=== PATIENT | female | born 1945 | race Caucasian/White ===

== ENCOUNTER → 2017-02-24 | Outpatient (CLI) | payer MEDICARE, OTHER ==
[~2017-02-24] MED LIST: AMOX TR-K CLV1 EAC4 PO; CELEXA40 MG PO; NORCO 5-325 MG1 TAB PO; ZOCOR40 MG PO
== END | disposition disaster alternative care site (69) ==
LOC: GBCOE 13:00
DX: Z12.31 Encounter for screening mammogram for malignant neoplasm of breast (principal); I77.9 Disorder of arteries and arterioles, unspecified; I65.23 Occlusion and stenosis of bilateral carotid arteries; Z86.010 Personal history of colon polyps
CPT/HCPCS: G0202

== ENCOUNTER → 2017-03-09 | Outpatient (CLI) | payer MEDICARE, OTHER | END | disposition disaster alternative care site (69) | LOC: LGSMG 17:12 | DX: R50.9 Fever, unspecified (principal) ==

== ENCOUNTER → 2017-03-13 | Outpatient (CLI) | payer MEDICARE, OTHER | END | disposition disaster alternative care site (69) | LOC: GRAD 08:50 | DX: R50.9 Fever, unspecified (principal); R51 Headache; J32.0 Chronic maxillary sinusitis ==

== ENCOUNTER → 2017-03-24 | Outpatient (CLI) | payer MEDICARE, OTHER | END | disposition disaster alternative care site (69) | LOC: LGSMG 17:15 | DX: R50.9 Fever, unspecified (principal) ==

== ENCOUNTER → 2017-04-20 | Outpatient (CLI) | payer MEDICARE, OTHER ==
[2017-04-20 17:28] LABS: BASOPHIL # 0.1 K/uL (0.0-0.2); BASOPHIL % 1.1 %; EOSINOPHIL # 0.4 K/uL (0.0-0.5); EOSINOPHIL % 7.1 %; HEMATOCRIT 38.5 % (33.0-46.0); HEMOGLOBIN 12.4 g/dL (10.0-15.0); IMMATURE GRANULOCYTE % 0.2 %; LYMPHOCYTE # 1.7 K/uL (0.8-4.0); MCH 30.2 pg (27.0-34.0); MCHC 32.2 gm/dL (32.0-36.5); MCV 93.7 fl (83.0-98.0); MONOCYTE # 0.4 K/uL (0.0-1.0); MPV 14.7 fl (9.4-12.4); NEUTROPHIL # (ANC) 2.9 K/uL (1.8-7.8); NEUTROPHIL % 53.6 %; NRBC % 0 /100WBC (0-0.00); PLATELET COUNT 187 K/uL (150-450); RBC 4.11 M/uL (3.50-5.50); RDW-CV 13.2 % (11.9-14.6); WBC 5.3 K/uL (4.0-11.0)
[2017-04-20 17:40] LABS: ALK PHOS 72 IU/L (33-138); ALT 140 IU/L (12-78); ANION GAP 10.7 (10.0-19.0); AST 71 IU/L (10-40); BLOOD UREA NITROGEN 20 mg/dL (6-24); CALCIUM 9.1 mg/dL (8.5-10.5); CHLORIDE 106 mMol/L (96-110); CO2 26 mMol/L (22-32); CREATININE 0.8 mg/dL (0.5-1.1); ESTIMATED GFR (MDRD EQUATION) > 60; POTASSIUM 3.7 mMol/L (3.7-5.1); SODIUM 139 mMol/L (135-145); TOTAL BILIRUBIN 0.3 mg/dL (0.0-1.5)
[2017-04-20 17:46] LABS: BILIRUBIN URINE NEGATIVE (NEGATIVE); BLOOD URINE 10 /UL (NEGATIVE); COLOR URINE YELLOW (YELLOW); GLUCOSE URINE NEGATIVE (NEGATIVE); KETONE URINE NEGATIVE (NEGATIVE); LEUKOCYTES URINE NEGATIVE /UL (NEGATIVE); NITRITE URINE NEGATIVE (NEGATIVE); PROTEIN URINE 15 mg/dL (NEGATIVE); TURBIDITY URINE 1+ (CLEAR); UROBILINOGEN URINE NORMAL (NORMAL)
[2017-04-20 17:57] LABS: BACTERIA URINE FEW (NEGATIVE); RBC URINE NEGATIVE #/HPF (NEGATIVE); WBC URINE 0-2 #/HPF (NEGATIVE)
== END ==
LOC: LGSMG 17:20
PROVIDERS: Internal Medicine
DX: R11.0 Nausea (principal); R50.9 Fever, unspecified; A04.7 Enterocolitis due to Clostridium difficile

== ENCOUNTER → 2017-05-08 | Outpatient (CLI) | payer MEDICARE, OTHER | END | disposition disaster alternative care site (69) | LOC: GRAD 15:30 | DX: K04.7 Periapical abscess without sinus (principal); J32.9 Chronic sinusitis, unspecified; R51 Headache; R50.9 Fever, unspecified ==

== ENCOUNTER → 2017-05-08 | Outpatient (CLI) | payer MEDICARE, OTHER | END | disposition disaster alternative care site (69) | LOC: LGSMG 16:14 | DX: R80.9 Proteinuria, unspecified (principal) ==

== ENCOUNTER → 2017-05-11 | Outpatient (CLI) | payer MEDICARE, OTHER | END | disposition disaster alternative care site (69) | LOC: GRAD 10:15 | DX: K04.7 Periapical abscess without sinus (principal); J32.9 Chronic sinusitis, unspecified; K76.89 Other specified diseases of liver; R51 Headache; R50.9 Fever, unspecified ==

== ENCOUNTER → 2017-05-15 | Outpatient (CLI) | payer MEDICARE, OTHER | END | disposition disaster alternative care site (69) | LOC: GRAD 08:02 | DX: R47.01 Aphasia (principal); R47.1 Dysarthria and anarthria ==

== ENCOUNTER → 2017-06-02 | Outpatient (CLI) | payer MEDICARE, OTHER ==
[2017-06-02 16:43] LABS: INR - (THERAPEUTIC) 0.97 (0.92-1.07); PROTIME 10.2 SECONDS (9.8-11.4)
== END ==
LOC: LGSMG 16:26
PROVIDERS: Internal Medicine
DX: Z01.818 Encounter for other preprocedural examination (principal)

== ENCOUNTER → 2017-06-14 | Day surgery (SDC) | payer MEDICARE, OTHER ==
--- NOTE | ~2017-06-14 | ER ---
PATIENT'S NAME: PEDRO LI [facility] AGE: 72 Y [address] ROOM: [place] [address] [place] [facility] [place]: 06/14/2017 ER/Outpatient Report DISCHARGE DATE: FAMILY PHYSICIAN: Josefa Romero MD ATTENDING PHYSICIAN: Ubaldo Dominguez V Time of Arrival: 1606 hours. Time of Evaluation: 1615 hours. CHIEF COMPLAINT: Nosebleed. HISTORY OF PRESENT ILLNESS: The patient is a 72-year-old female who presents to emergency department today with chief complaint of nosebleed. She reports this started 30 minutes prior to arrival. The patient reports she underwent sinus surgery by Dr. Dominguez on the 04 of June approximately 10 days prior. The patient was seen and evaluated at [facility] for nosebleed yesterday as she was able to get the bleeding controlled. However, the patient started bleeding about 30 minutes prior to coming in here. She denies any pain, 0/10 in severity. No fevers, chills, nausea, vomiting, diarrhea, or constipation. PAST MEDICAL HISTORY: Anxiety, dyslipidemia. PAST SURGICAL HISTORY: Sinus surgery, neck surgery. SOCIAL HISTORY: The patient denies any tobacco use. She reports occasional alcohol use. Denies any illicit drug use. ALLERGIES: NO KNOWN DRUG ALLERGIES. MEDICATIONS: None. PRIMARY CARE DOCTOR: Josefa Romero MD REVIEW OF SYSTEMS: All systems are reviewed by myself and negative with the exception of those discussed in HPI and past medical history. PATIENT'S NAME: GUILLERMOPEDRO [facility] AGE: 72 Y [address] ROOM: [place] [address] LOCATION: [facility] [place] DATE: 06/14/2017 ER/Outpatient Report DISCHARGE DATE: FAMILY PHYSICIAN: Josefa Romero MD ATTENDING PHYSICIAN: Ubaldo Dominguez V PHYSICAL EXAMINATION: VITAL SIGNS: Weight 63.7 kg, blood pressure 174/92, pulse 104, respiratory rate 18, temperature 99.4, oxygen saturation 98% on room air. GENERAL: The patient is a 72-year-old female, appears stated age with active nosebleed. HEENT: Normocephalic, atraumatic. Pupils are equal, round, and reactive to light. The patient's right naris with bleeding and clot noted. Left naris appears normal. Oropharynx: The patient does have posterior pharynx bleeding. NECK: Supple. There is no nuchal rigidity. CARDIOVASCULAR: Tachycardic. No murmurs, rubs, or gallops. LUNGS: Clear to auscultation bilaterally. No wheezes, rales, or rhonchi. ABDOMEN: Soft, nontender, and nondistended. No rebound, rigidity, or guarding. MUSCULOSKELETAL: The patient moves all 4 extremities. SKIN: Warm and dry. LABORATORY DATA AND X-RAYS: Labs and x-rays are obtained. CBC is unremarkable. Coags are unremarkable. IMPRESSION: 1. Right naris epistaxis with recent sinus surgery. 2. Initial visit. EMERGENCY DEPARTMENT COURSE: The patient was brought back to the examination room. Seen and evaluated by myself. IV was established. Laboratory analysis are obtained as described above. Afrin was instilled. Pressure is held for 15 minutes. The naris is evaluated, a large clot was suctioned. There continues to be bleeding after Afrin and pressure. We have discussed the case with Dr. Dominguez, who did perform the sinus surgery. He will proceed to the operating room for control of the bleeding and is likely coming from the sinus surgery itself. I have discussed this with the patient. She is agreeable without further questions at this time. DISPOSITION: The patient is admitted to the operating room in stable condition. DO MORGAN MARCELINO/lauren PATIENT'S NAME: PEDRO LI [facility] AGE: 72 Y [address] ROOM: [place] [address] LOCATION: [facility] [place] DATE: 06/14/2017 ER/Outpatient Report DISCHARGE DATE: FAMILY PHYSICIAN: Josefa Romero MD ATTENDING PHYSICIAN: Ubaldo Dominguez V /[id number] d: 06/14/171911 t: 06/15/17 0759, OUTPATIENT REPORT
--- NOTE | ~2017-06-14 | OR ---
PATIENT'S NAME: PEDRO LI [facility] AGE: 72 Y [address] ROOM: [place], [place] [address] LOCATION: [facility] [place] ADMIT DATE: 06/14/2017 OR/Procedure Report DISCHARGE DATE: FAMILY PHYSICIAN: Josefa Romero MD ATTENDING PHYSICIAN: Ubaldo Dominguez V SURGEON: Ubaldo Dominguez MD [employer] COUNSELOR: DATE OF PROCEDURE: 06/14/2017 PREOPERATIVE DIAGNOSIS: Postop right nasal hemorrhage. POSTOPERATIVE DIAGNOSIS: Postop right nasal hemorrhage. OPERATION/PROCEDURE: Revision right total endoscopic ethmoidectomy, middle meatal antrostomy with cauterization control of epistaxis with placement of right nasal packing. ANESTHESIA: General endotracheal anesthesia. ESTIMATED BLOOD LOSS: Approximately 150 mL. COMPLICATIONS: None. FINDINGS: Diffuse bleeding coming from the superior anterior ethmoid cavity, posterior attachment of middle turbinate, as well as the maxillary sinus. BRIEF HISTORY: The patient is a 72-year-old female, status post bilateral limited anterior ethmoidectomy, maxillary antrostomy performed per Dr. Trent Christianson on 06/05/2017. The patient had acute right-sided epistaxis on the morning of 06/11/2017, was evaluated in the ENT Clinic. Large amount of clot was suctioned, removed, and Gel-Foam packing was placed within the area of the anterior ethmoid maxillary antrostomy. The patient subsequently was in the emergency room in [place], [place] on Thursday evening 06/12/2017, was treated conservatively. Bleeding had subsequently stopped, began again on the early afternoon 06/14/2017, was unable to be controlled with conventional methods. The patient was scheduled for exam under anesthesia with possible packing. Control of epistaxis. DESCRIPTION OF PROCEDURE: The patient was taken to the operating room, laid in supine position, underwent general endotracheal anesthesia. Table was rotated to 180 degrees. Head was placed in the upright position. The patient was prepped and draped in usual sterile fashion. A large amount of clot was suctioned from the right nasal vestibule. Nasal cavity was irrigated with copious amounts of saline solution. With removal of a clot extending back into the nasopharynx. The patient had active bleeding coming from the PATIENT'S NAME: PEDRO LI [facility] AGE: 72 Y [address] ROOM: [place], [place] [address] LOCATION: [facility] [place] ADMIT DATE: 06/14/2017 OR/Procedure Report DISCHARGE DATE: FAMILY PHYSICIAN: Josefa Romero MD ATTENDING PHYSICIAN: Ubaldo Dominguez V anterior her coming from lateral nasal wall over the uncinate as well as bleeding coming from above the area of the previous anterior ethmoidectomy as well as posteriorly of the posterior attachment of middle turbinate. The maxillary antrostomy was active bleeding coming from the edges of maxillary antrostomy. The maxillary sinus was suctioned of copious amounts of clot with again persistent active bleeding. The previous maxillary antrostomy was widened extended anteriorly. The uncinate process was taken down using biting forceps. Anterior revision and anterior ethmoidectomy was performed, skeleton and lamina papyracea. This carried to the grand lamella. Grand lamella was infractured opened. Posterior ethmoid cells were exposed with exposure of the posterior attachment of the middle turbinate. Maxillary antrostomy was widened. Sinus was irrigated with copious amounts of saline solution. Cocaine Afrin-soaked nasal pledgets were placed within the sinus cavity. There was some persistent oozing from the area of the uncinate process. This was cauterized using suction Bovie electrocautery. The posterior attachment of the middle turbinate was cauterized using suction Bovie electrocautery. Cocaine and Afrin-soaked pledgets were replaced within nasal cavity. Hemostasis was adequate. Clot was suctioned from the maxillary sinus without any residual active bleeding. Surgicel was then placed along the lamina as well as along the posterior attachment of the middle turbinate extending into the posterior ethmoid cell. Nasal pore pack was then placed within the ethmoid cavity and soaked with Afrin solution. Hemostasis was noted to be adequate. No additional blood. Attention was turned to the left. A large amount of clot was suctioned from the left nasal cavity. There was some old clot within the area of the previous anterior ethmoid. This was partially debrided and suctioned. The patient tolerated the procedure well. The patient's stomach was suctioned per Anesthesia. The patient was aroused, extubated, and discharged from the operating room to the recovery room in satisfactory condition. UBALDO DOMINGUEZ MD TVJudy/modl /[id number] d: 06/14/172052 t: 06/22/17 0957, OPERATIVE SUMMARY
[2017-06-14 17:34] LABS: BASOPHIL # 0.1 K/uL (0.0-0.2); BASOPHIL % 0.7 %; EOSINOPHIL # 0.3 K/uL (0.0-0.5); EOSINOPHIL % 4.1 %; HEMATOCRIT 33.4 % (33.0-46.0); IMMATURE GRANULOCYTE % 0.3 %; LYMPHOCYTE # 1.9 K/uL (0.8-4.0); LYMPHOCYTE % 24.6 %; MCH 30.6 pg (27.0-34.0); MCHC 32.9 gm/dL (32.0-36.5); MONOCYTE # 0.6 K/uL (0.0-1.0); MONOCYTE % 7.5 %; NEUTROPHIL # (ANC) 4.8 K/uL (1.8-7.8); NEUTROPHIL % 62.8 %; NRBC % 0 /100WBC (0-0.00); PLATELET COUNT 239 K/uL (150-450); RBC 3.59 M/uL (3.50-5.50); RDW-CV 12.2 % (11.9-14.6); WBC 7.6 K/uL (4.0-11.0)
[2017-06-14 17:42] LABS: INR - (THERAPEUTIC) 0.97 (0.92-1.07); PROTIME 10.2 SECONDS (9.8-11.4)
== END ==
LOC: GMED 16:06 → GSDC 17:53
PROVIDERS: Emergency Medicine
PROC: 09BU4ZZ Excision of Right Ethmoid Sinus, Percutaneous Endoscopic Approach (ICD-10-PCS; principal; 2017-06-14)
PROC: 099Q4ZZ Drainage of Right Maxillary Sinus, Percutaneous Endoscopic Approach (ICD-10-PCS; 2017-06-14)
PROC: 0W3Q8ZZ Control Bleeding in Respiratory Tract, Via Natural or Artificial Opening Endoscopic (ICD-10-PCS; 2017-06-14)
DX: J95.830 Postprocedural hemorrhage of a respiratory system organ or structure following a respiratory system procedure (principal); J32.2 Chronic ethmoidal sinusitis
CPT/HCPCS: A9270; J0171; J1100; J2405; J7120